=== PATIENT | female | born 1980 | race Caucasian/White ===

== ENCOUNTER 2020-08-05 08:00 | Outpatient (CLI) | payer OTHER ==
[2020-08-06 19:45] LABS: BACTERIAL VAGINOSIS DNA NEGATIVE (NEGATIVE); CANDIDA GLABRATA DNA NEGATIVE (NEGATIVE); CANDIDA GROUP DNA NEGATIVE (NEGATIVE); CANDIDA KRUSEI DNA NEGATIVE (NEGATIVE); TRICHOMONAS VAGINALIS DNA NEGATIVE (NEGATIVE)
== END 2020-08-05 23:59 | disposition home or self-care (01) ==
LOC: LAB.R 08:00
PROVIDERS: ATTEND Advanced Practice Midwife
DX: N76.0 Acute vaginitis (principal)
CPT/HCPCS: 87661; 87801

== ENCOUNTER 2022-08-15 14:19 | Outpatient (CLI) | payer OTHER ==
--- NOTE | 2022-08-16 10:37 | Mammography Report ---
BILATERAL DIGITAL SCREENING MAMMOGRAM 3D/2D: 08/15/2022 CLINICAL: Baseline exam. Routine screening. Family history of breast cancer. No prior exams were available for comparison. Both breasts are heterogeneously dense, which may obscure small masses (category c / 51-75% glandular tissue). There is a possible irregular asymmetry in the right breast middle depth superior region seen on the mediolateral oblique view only. Finding is seen only on tomography. No other significant masses, calcifications, or other findings are seen in either breast. IMPRESSION: INCOMPLETE: NEEDS ADDITIONAL IMAGING EVALUATION The possible irregular asymmetry in the right breast is indeterminate. Additional views with possibl e ultrasound are recommended. Based on Tyrer-Cuzick model (a risk assessment model), the patient's lifetime risk is 36.4% and her 1 0 year risk is 5.3%. If a patient has an elevated risk, a more comprehensive evaluation should be con sidered and/or a referral to a genetic counselor. The [place] [employer], [employer], and NCCN Guidelines advise the consideration of Breast MRI as an adjunct to screening mammog marcos in patients whose "Lifetime risk to develop breast cancer" is 20% or higher. This exam was interpreted at Station ID: [id number]. NOTE: For mammograms, a report in lay terms will be sent to the patient. Approximately 15% of breast malignancies will not be visualized mammographically. In the management of a palpable breast mass, a negative mammogram must not discourage biopsy of a clinically suspicious lesion. Electronically Signed By: Cristian hudson/angelrad:08/15/2022 16:22:12 ACR BI-RADS Category 0: Incomplete 3340F PARENCHYMAL PATTERN: (D) - The breast(s) demonstrate(s) heterogeneously dense fibroglandular parenchy ma. BI-RADS CATEGORY: (0) - 0 Mammo and [place] [id number] Immediate follow-up LATERALITY: (R)
== END 2022-08-15 14:20 | disposition home or self-care (01) ==
LOC: DI 14:19
PROVIDERS: ATTEND Nurse Practitioner Family
DX: Z12.31 Encounter for screening mammogram for malignant neoplasm of breast (principal); R92.8 Other abnormal and inconclusive findings on diagnostic imaging of breast; Z80.3 Family history of malignant neoplasm of breast

== ENCOUNTER 2022-09-13 08:07 | Outpatient (CLI) | payer OTHER ==
--- NOTE | 2022-09-14 12:16 | Ultrasound Report ---
LIMITED ULTRASOUND OF RIGHT BREAST: 09/13/2022 CLINICAL: Patient returns today to evaluate an asymmetry in the right breast. Comparison is made to exams dated: 09/13/2022 mammogram and 08/15/2022 mammogram - [facility]. Color flow ultrasound of the right breast 12-1 o'clock region was performed. Vital scale images of th e real-time examination were reviewed. Dense fibroglandular tissue but no mass is identifed in the area of the mammographic possible asymmet ry in the right breast 12-1 o'clock position. IMPRESSION: NEGATIVE No sonographic abnormality is seen corresponding to the mammographic asymmetry in the right breast, w hich is compatible with normal fibroglandular tissue. There is no sonographic evidence of malignancy. Return to annual mammogram screening schedule is recommended. Given elevated lifetime risk of breast cancer, consider high risk screening schedule with annual screening mammograms and annual breast MRI on an alternating 6 month basis. This exam was interpreted at Station ID: [id number]. Electronically Signed By: Cristian Duval M.D. ar/:09/13/2022 12:21:01 letter sent: No_Letter Ultrasound BI-RADS: 1 Negative BI-RADS CATEGORY: (1) - 1 Mammogram [id number] return to screening LATERALITY: (B)
--- NOTE | 2022-09-14 12:16 | Mammography Report ---
UNILATERAL RIGHT DIGITAL DIAGNOSTIC MAMMOGRAM 3D/2D WITH SPOT COMPRESSION: 09/13/2022 CLINICAL: Patient returns today to evaluate an asymmetry in the right breast. Comparison is made to exam dated: 08/15/2022 mammogram - [facility]. The right breast is heterogeneously dense, which may obscure small masses (category c / 51-75% glandu lar tissue). There is a possible asymmetry in the right breast middle depth superior region seen on the mediolater al oblique view only. Finding is seen only on tomography. This is less prominent. No other significant masses or calcifications are seen in the breast. IMPRESSION: INCOMPLETE: NEEDS ADDITIONAL IMAGING EVALUATION The possible asymmetry in the right breast resembles fibroglandular tissue and is indeterminate. An ultrasound is recommended. Based on Tyrer-Cuzick model (a risk assessment model), the patient's lifetime risk is 36.4% and her 1 0 year risk is 5.3%. If a patient has an elevated risk, a more comprehensive evaluation should be con sidered and/or a referral to a genetic counselor. The [employer], [employer], and NCCN Guidelines advise the consideration of Breast MRI as an adjunct to screening mammog marcos in patients whose "Lifetime risk to develop breast cancer" is 20% or higher. This exam was interpreted at Station ID: [id number]. NOTE: For mammograms, a report in lay terms will be sent to the patient. Approximately 15% of breast malignancies will not be visualized mammographically. In the management of a palpable breast mass, a negative mammogram must not discourage biopsy of a clinically suspicious lesion. Electronically Signed By: Cristian hudson/jose luis:09/13/2022 12:10:48 ACR BI-RADS Category 0: Incomplete 3340F PARENCHYMAL PATTERN: (D) - The breast(s) demonstrate(s) heterogeneously dense fibroglandular jair smith. BI-RADS CATEGORY: (0) - 0 Ultrasound [id number] Immediate follow-up LATERALITY: (R)
== END 2022-09-13 08:08 | disposition home or self-care (01) ==
LOC: DI 08:07
PROVIDERS: ATTEND Nurse Practitioner Family
DX: R92.8 Other abnormal and inconclusive findings on diagnostic imaging of breast (principal)

== ENCOUNTER 2023-10-09 09:44 | Outpatient (CLI) | payer OTHER ==
--- NOTE | 2023-10-10 08:47 | Mammography Report ---
BILATERAL DIGITAL SCREENING MAMMOGRAM 3D/2D: 10/09/2023 CLINICAL: Routine screening. Family history of breast cancer. Comparison is made to exams dated: 09/13/2022 mammogram and 08/15/2022 mammogram - [facility]. Both breasts are heterogeneously dense, which may obscure small masses (category c / 51-75% glandular tissue). No significant masses, calcifications, or other findings are seen in either breast. There has been no significant interval change. IMPRESSION: NEGATIVE There is no mammographic evidence of malignancy. A 1 year screening mammogram is recommended. Based on Tyrer-Cuzick model (a risk assessment model), the patient's lifetime risk is 36.5% and her 1 0 year risk is 5.8%. If a patient has an elevated risk, a more comprehensive evaluation should be con sidered and/or a referral to a genetic counselor. The [employer], [employer], and NCCN Guidelines advise the consideration of Breast MRI as an adjunct to screening mammog marcos in patients whose "Lifetime risk to develop breast cancer" is 20% or higher. This exam was interpreted at Station ID: [id number]. NOTE: For mammograms, a report in lay terms will be sent to the patient. Approximately 15% of breast malignancies will not be visualized mammographically. In the management of a palpable breast mass, a negative mammogram must not discourage biopsy of a clinically suspicious lesion. Electronically Signed By: Ulises ramirez/jose luis:10/09/2023 13:41:31 letter sent: No_Letter ACR BI-RADS Category 1: Negative 3341F PARENCHYMAL PATTERN: (D) - The breast(s) demonstrate(s) heterogeneously dense fibroglandular parenchy ma. BI-RADS CATEGORY: (1) - 1 RECOMMENDATION: (ANNUAL) - Recommend routine annual screening mammography. [id number] 1 year screening LATERALITY: (B)
== END 2023-10-09 09:45 | disposition home or self-care (01) ==
LOC: DI.S 09:44
PROVIDERS: ATTEND Registered Nurse
DX: Z12.31 Encounter for screening mammogram for malignant neoplasm of breast (principal); R92.333 Mammographic heterogeneous density, bilateral breasts